=== PATIENT | male | born 1955 | race Caucasian/White ===

== ENCOUNTER 2018-03-29 12:00 | Emergency (ER) | payer OTHER | END 2018-03-29 12:58 | disposition home or self-care (01) | LOC: E/R 12:00 | DX: R21 Rash and other nonspecific skin eruption (principal); S50.812D Abrasion of left forearm, subsequent encounter; X58.XXXD Exposure to other specified factors, subsequent encounter | CPT/HCPCS: 99284 ==

== ENCOUNTER 2018-04-13 10:04 | Emergency (ER) | payer OTHER | END 2018-04-13 10:26 | disposition home or self-care (01) | LOC: E/R 10:04 | DX: S31.30XA Unspecified open wound of scrotum and testes, initial encounter (principal); X58.XXXA Exposure to other specified factors, initial encounter; Y92.9 Unspecified place or not applicable | CPT/HCPCS: 99284 ==

== ENCOUNTER 2018-08-23 13:31 | Emergency (ER) | payer OTHER ==
[2018-08-23] MEDS: HYDROCODONE/APAP (5/325) TAB PO (14:05)
[2018-08-23] MEDS: IBUPROFEN 600 MG TAB PO (14:05)
== END 2018-08-23 15:31 | disposition home or self-care (01) ==
LOC: FTE 13:31
DX: S52.572A Other intraarticular fracture of lower end of left radius, initial encounter for closed fracture (principal); X58.XXXA Exposure to other specified factors, initial encounter; Y92.9 Unspecified place or not applicable
CPT/HCPCS: 29125; 73110-LT; 99283-25

== ENCOUNTER 2019-07-11 03:21 | Emergency (ER) | payer OTHER ==
[2019-07-11] MEDS: ONDANSETRON 4 MG INJ IV (04:37)
[2019-07-11 04:54] LABS: ADD MAN DIFF? NO
[2019-07-11 04:55] LABS: BASOPHILS % 0.7 % (0.0-2.0); EOSINOPHILS # 0.3 10^3/ul (0.0-0.5); EOSINOPHILS % 4.8 % (0.0-7.0); HEMATOCRIT 42.4 % (42.0-52.0); LYMPHOCYTES # 1.6 10^3/ul (0.8-2.9); LYMPHOCYTES % 26.7 % (15.0-51.0); MEAN CORPUSCULAR HEMOGLOBIN 42.5 pg (29.0-33.0); MEAN CORPUSCULAR HGB CONC 35.4 g/dl (32.0-37.0); MEAN CORPUSCULAR VOLUME 120.1 fl (82.0-101.0); MEAN PLATELET VOLUME 9.3 fl (7.4-10.4); MONOCYTE # 0.7 10^3/ul (0.3-0.9); MONOCYTES % 12.3 % (0.0-11.0); NEUTROPHIL # 3.3 10^3/ul (1.6-7.5); NEUTROPHILS % 54.7 % (39.0-77.0); PLATELET COUNT 157 10^3/UL (140-415); RED BLOOD COUNT 3.53 10^6/ul (4.70-6.10); RED CELL DISTRIBUTION WIDTH 13.3 % (11.5-14.5)
[2019-07-11 05:12] LABS: ALANINE AMINOTRANSFERASE 29 IU/L (13-69); ALBUMIN 4.3 g/dl (3.3-4.9); ALBUMIN/GLOBULIN RATIO 1.34; ALKALINE PHOSPHATASE 131 IU/L (42-121); ANION GAP 10 (5-13); ASPARTATE AMINO TRANSFERASE 36 IU/L (15-46); BILIRUBIN,INDIRECT 0.4 mg/dl (0-1.1); BILIRUBIN,TOTAL 0.4 mg/dl (0.2-1.3); BLOOD UREA NITROGEN 15 mg/dl (7-20); CALCIUM 9.2 mg/dl (8.4-10.2); CARBON DIOXIDE 27 mmol/L (21-31); CHLORIDE 103 mmol/L (97-110); CREATININE 0.85 mg/dl (0.61-1.24); Estimated GFR > 60 mL/min (>60); GLUCOSE 110 mg/dl (70-220); POTASSIUM 4.1 mmol/L (3.5-5.1); SODIUM 140 mmol/L (135-144); TOTAL PROTEIN 7.5 g/dl (6.1-8.1)
[2019-07-11 05:21] LABS: B-TYPE NATRIURETIC PEPTIDE 1060 PG/ML (0-125)
== END 2019-07-11 07:17 | disposition home or self-care (01) ==
LOC: FTE 03:21
DX: R06.02 Shortness of breath (principal); R10.9 Unspecified abdominal pain; J44.9 Chronic obstructive pulmonary disease, unspecified; I50.9 Heart failure, unspecified; F17.210 Nicotine dependence, cigarettes, uncomplicated; Z21 Asymptomatic human immunodeficiency virus [HIV] infection status
CPT/HCPCS: 36415; 71045; 80053; 83880; 85025; 93005; 96374; 99285-25